=== PATIENT | male | born 1970 | race African-American/Black ===

== ENCOUNTER 2017-09-29 15:18 | Emergency (ER) | payer MEDICAID, OTHER ==
[~2017-09-29] VITALS: Ht 180.3 cm; Wt 110.0 kg
[2017-09-29 15:20] VITALS: BP 130/81
[2017-09-29] MEDS ORDERED: IBUPROFEN 600MG TABLET PO STA (15:39)
== END 2017-09-29 19:01 | disposition home or self-care (01) ==
LOC: ER 15:44
DX: S50.02XA Contusion of left elbow, initial encounter (principal); M70.32 Other bursitis of elbow, left elbow; W06.XXXA Fall from bed, initial encounter; Y93.89 Activity, other specified; Y92.149 Unspecified place in prison as the place of occurrence of the external cause
CPT/HCPCS: 73080; 99284

== ENCOUNTER 2018-06-04 03:49 | Emergency (ER) | payer MEDICAID ==
[~2018-06-04] VITALS: Ht 182.9 cm; Wt 104.5 kg
[2018-06-04 04:58] LABS: BASOPHILS % 0.5 % (0.0-2.0); EOSINOPHILS % 0.9 % (0.0-5.0); HEMATOCRIT. 37.6 % (42.0-52.0); HEMOGLOBIN. 12.4 g/dL (14.0-18.0); LYMPHOCYTES % 34.3 % (20.0-50.0); MEAN CORPUSCULAR HEMOGLOBIN 28.3 pg (28.0-32.0); MEAN CORPUSCULAR VOLUME 85.8 fL (80.0-94.0); MEAN PLATELET VOLUME 10.2 fl (7.4-10.4); MONOCYTES % 10.4 % (2.0-8.0); NEUTROPHILS % 53.9 % (40.0-76.0); PLATELET 125 x1000/uL (130-400); RED BLOOD CELL COUNT 4.39 mill/uL (4.7-6.1); RED CELL DISTRIBUTION WIDTH 15.2 % (11.6-14.6)
[2018-06-04 05:07] LABS: CHLORIDE 105 mEq/L (98-107)
[2018-06-04 05:13] LABS: ETHANOL BLOOD < 10 mg/dL
[2018-06-04 06:44] LABS: CLARITY URINE CLEAR (CLEAR); COLOR URINE DARK YELLOW (YELLOW); KETONES URINE TRACE (NEGATIVE); LEUKOCYTE ESTERASE URINE TRACE (NEGATIVE); NITRITE URINE NEGATIVE (NEGATIVE); OCCULT BLOOD URINE 1+ (NEGATIVE); PH URINE 5.5 (4.5-8.0); PROTEIN URINE 2+ (NEGATIVE)
[2018-06-04 07:00] LABS: *AMPHETAMINES SCREEN URINE PRESUMTIVE POSITIVE (NEGATIVE); *BARBITURATES SCREEN URINE NEGATIVE (NEGATIVE); *BENZODIAZEPINES SCREEN URINE NEGATIVE (NEGATIVE)
[2018-06-04 07:01] LABS: *COCAINE SCREEN URINE NEGATIVE (NEGATIVE); METHADONE URINE SCREEN NEGATIVE (NEGATIVE); OPIATES URINE SCREEN NEGATIVE (NEGATIVE); PHENCYCLIDINE URINE SCREEN PRESUMTIVE POSITIVE (NEGATIVE)
[2018-06-04 07:02] LABS: CANNABINOID URINE SCREEN PRESUMTIVE POSITIVE (NEGATIVE)
[2018-06-04] MEDS ORDERED: LORAZEPAM 2MG/ML CPJ IM STA (12:44)
[2018-06-04 16:00] VITALS: BP 142/64
== END 2018-06-04 16:50 | disposition home or self-care (01) ==
LOC: ER 03:49
DX: R41.82 Altered mental status, unspecified (principal); R74.0 Nonspecific elevation of levels of transaminase and lactic acid dehydrogenase [LDH]; Z86.19 Personal history of other infectious and parasitic diseases
CPT/HCPCS: 36415; 70450; 80053; 80305; 81003; 85025; 93005; 96372; 99284; G0482; J2060

== ENCOUNTER 2018-06-05 23:34 | Emergency (ER) | payer MEDICAID ==
[~2018-06-05] VITALS: Ht 185.4 cm; Wt 96.0 kg
[2018-06-06] MEDS ORDERED: IBUPROFEN 600MG TABLET PO ONE (01:30)
[2018-06-06] MEDS ORDERED: DIAZEPAM 2 MG TABLET PO ONE (01:30)
[2018-06-06 14:00] VITALS: BP 122/74
== END 2018-06-06 14:15 | disposition home or self-care (01) ==
LOC: ER 23:34
DX: M54.5 Low back pain (principal); G89.29 Other chronic pain; R03.0 Elevated blood-pressure reading, without diagnosis of hypertension; Z86.19 Personal history of other infectious and parasitic diseases; W11.XXXA Fall on and from ladder, initial encounter; Y93.89 Activity, other specified; Y92.018 Other place in single-family (private) house as the place of occurrence of the external cause
CPT/HCPCS: 72100; 99283

== ENCOUNTER 2018-06-08 06:57 | Emergency (ER) | payer MEDICAID ==
[~2018-06-08] VITALS: Ht 190.5 cm; Wt 100.0 kg
[2018-06-08 11:10] VITALS: BP 119/76
[2018-06-08] MEDS ORDERED: OXYCODONE HCL/ACETAMINOPHEN 5/325MG TABLET PO ONE (11:30)
[2018-06-08] MEDS ORDERED: IBUPROFEN 800MG TABLET PO ONE (11:30)
== END 2018-06-08 13:23 | disposition left against medical advice (07) ==
LOC: ER 07:29
DX: M79.642 Pain in left hand (principal); M79.641 Pain in right hand; F17.200 Nicotine dependence, unspecified, uncomplicated
CPT/HCPCS: 99283

== ENCOUNTER 2018-07-13 05:44 | Emergency (ER) | payer MEDICAID ==
[~2018-07-13] VITALS: Ht 185.4 cm; Wt 95.0 kg
[2018-07-13 05:50] VITALS: BP 112/83
== END 2018-07-13 08:54 | disposition left against medical advice (07) ==
LOC: ER 05:44
DX: F10.129 Alcohol abuse with intoxication, unspecified (principal); Z53.21 Procedure and treatment not carried out due to patient leaving prior to being seen by health care provider

== ENCOUNTER 2020-06-13 06:31 | Emergency (ER) | payer MEDICAID ==
[~2020-06-13] VITALS: Ht 182.9 cm; Wt 159.0 kg
[2020-06-13 09:01] LABS: CLARITY URINE CLEAR (CLEAR); COLOR URINE DARK YELLOW (YELLOW); KETONES URINE NEGATIVE (NEGATIVE); LEUKOCYTE ESTERASE URINE NEGATIVE (NEGATIVE); NITRITE URINE NEGATIVE (NEGATIVE); OCCULT BLOOD URINE NEGATIVE (NEGATIVE); PROTEIN URINE 2+ (NEGATIVE); SPECIFIC GRAVITY URINE 1.025 (1.005-1.030)
[2020-06-13 09:04] LABS: BASOPHILS % 1.4 % (0.0-2.0); EOSINOPHILS % 10.2 % (0.0-5.0); HEMATOCRIT. 42.7 % (42.0-52.0); HEMOGLOBIN. 14.4 g/dL (14.0-18.0); LYMPHOCYTES % 26.3 % (20.0-50.0); MEAN CORPUSCULAR HEMOGLOBIN 29.5 pg (28.0-32.0); MEAN CORPUSCULAR VOLUME 87.7 fL (80.0-94.0); MONOCYTES % 12.1 % (2.0-8.0); PLATELET 142 x1000/uL (130-400); RED BLOOD CELL COUNT 4.87 mill/uL (4.7-6.1); RED CELL DISTRIBUTION WIDTH 15.6 % (11.6-14.6)
[2020-06-13 09:05] LABS: CHLORIDE 110 mEq/L (98-107)
[2020-06-13 09:09] LABS: ETHANOL BLOOD < 10 mg/dL
[2020-06-13 09:27] LABS: *AMPHETAMINES SCREEN URINE NEGATIVE (NEGATIVE); *BARBITURATES SCREEN URINE NEGATIVE (NEGATIVE); *BENZODIAZEPINES SCREEN URINE NEGATIVE (NEGATIVE); *COCAINE SCREEN URINE NEGATIVE (NEGATIVE); METHADONE URINE SCREEN NEGATIVE (NEGATIVE); OPIATES URINE SCREEN NEGATIVE (NEGATIVE)
[2020-06-13 09:28] LABS: CANNABINOID URINE SCREEN NEGATIVE (NEGATIVE); PHENCYCLIDINE URINE SCREEN PRESUMTIVE POSITIVE (NEGATIVE)
[2020-06-13 10:00] VITALS: BP 144/95
== END 2020-06-13 11:16 | disposition home or self-care (01) ==
LOC: ER 06:31
DX: F16.188 Hallucinogen abuse with other hallucinogen-induced disorder (principal)
CPT/HCPCS: 36415; 71045; 80053; 80305; 80320; 81003; 82140; 82962; 85025; 99284; G0480

== ENCOUNTER 2022-01-12 14:51 | Emergency (ER) | payer MEDICAID, OTHER ==
[~2022-01-12] VITALS: Ht 177.8 cm; Wt 100.0 kg
[~2022-01-12 14:51] MED LIST: GABA-532 MT; IBUP-2028 MT
[2022-01-12 15:04] VITALS: BP 126/70
[2022-01-12 17:02] LABS: BASOPHILS % 0.7 % (0.0-2.0); EOSINOPHILS % 4.1 % (0.0-5.0); HEMATOCRIT. 31.3 % (42.0-52.0); HEMOGLOBIN. 10.3 g/dL (14.0-18.0); LYMPHOCYTES % 24.3 % (20.0-50.0); MEAN CORPUSCULAR HEMOGLOBIN 28.6 pg (28.0-32.0); MEAN CORPUSCULAR VOLUME 86.6 fL (80.0-94.0); MEAN PLATELET VOLUME 8.8 fl (7.4-10.4); MONOCYTES % 9.1 % (2.0-8.0); NEUTROPHILS % 61.8 % (40.0-76.0); PLATELET 164 x1000/uL (130-400); RED BLOOD CELL COUNT 3.62 mill/uL (4.7-6.1); RED CELL DISTRIBUTION WIDTH 15.7 % (11.6-14.6)
[2022-01-12 17:06] LABS: CHLORIDE 110 mEq/L (98-107)
[2022-01-12 17:14] LABS: ETHANOL BLOOD < 10 mg/dL
[2022-01-12] MEDS ORDERED: CEPH500C2 MT (17:14)
[2022-01-12] MEDS ORDERED: DOXY100C5 MT (17:14)
[2022-01-12] MEDS ORDERED: MAGNESIUM GLUCONATE 500MG TABLET PO SCH (17:45)
[2022-01-12] MEDS ORDERED: POTASSIUM CHLORIDE 20MEQ TABLET SR PO NR (17:45)
== END 2022-01-12 18:29 | disposition home or self-care (01) ==
LOC: ER 14:57
DX: L03.116 Cellulitis of left lower limb (principal); F12.10 Cannabis abuse, uncomplicated; F10.229 Alcohol dependence with intoxication, unspecified; Y90.0 Blood alcohol level of less than 20 mg/100 ml
CPT/HCPCS: 36415; 80053; 80320; 85025; 93005; 99284; Z7610; G0480